=== PATIENT | female | born 1995 | race Caucasian/White ===

== ENCOUNTER 2018-02-07 05:55 | Emergency (ER) | payer OTHER ==
[~2018-02-07] VITALS: Ht 180.3 cm; Wt 108.9 kg
[2018-02-07] MEDS ORDERED: NACL 0.9% 1,000 ML IV ONE ×2 (06:03→06:15)
[2018-02-07 06:05] VITALS: BP_SYST 116
--- NOTE | 2018-02-07 06:12 | NUR ---
Patient to ER bed 4 to gown for evaluation. Side rails up.
--- NOTE | 2018-02-07 06:14 | NUR ---
Patient AAOx4, ambulatory. Patient states having a main complaint of lower abdominal pain with current pain scale of 7/10 at this time. Patient states pain has a sharp sensation and radiates to the left lower abdomen. Patient states having nausea and diarrhea with no vomiting. Patient denies difficulty with urinating at this time. Patient denies any other complaints.
[2018-02-07] MEDS ORDERED: MORPHINE 4 MG/ML INJ. SYRINGE IVP ONE (06:15)
[2018-02-07] MEDS ORDERED: ONDANSETRON HCL 4 MG/2 ML VIAL IVP ONE (06:15)
--- NOTE | 2018-02-07 06:17 | NUR ---
ER Dr. Pfeiffer at bedside examining patient.
[2018-02-07 06:18] LABS: BILIRUBIN,URINE NEGATIVE (NEGATIVE); BLOOD, URINE NEGATIVE (NEGATIVE); CLARITY/URINE CLEAR (CLEAR); COLOR,URINE YELLOW (YELLOW); GLUCOSE,URINE NEGATIVE (NEGATIVE); KETONES,URINE NEGATIVE (NEGATIVE); LEUKOCYTE ESTERASE ,URINE TRACE (NEGATIVE); NITRITE, URINE NEGATIVE (NEGATIVE); PH,URINE 5.5 (5.0-8.0); PROTEIN URINE NEGATIVE (NEGATIVE); UROBILINOGEN,URINE 0.2 (0.2-1.0)
[2018-02-07 06:59] LABS: BASOPHILS # (AUTO) 0.1 K/uL (0.0-0.2); BASOPHILS % (AUTO) 1.5 % (0.0-2.0); EOSINOPHILS # (AUTO) 0.3 K/uL (0.0-0.4); EOSINOPHILS % (AUTO) 3.1 % (0.0-4.0); HEMATOCRIT 40.5 % (36-48); HEMOGLOBIN 13.7 g/dL (12.0-16.0); LYMPHOCYTES # (AUTO) 2.1 K/uL (1.0-5.5); LYMPHOCYTES % (AUTO) 22.6 % (20.5-51.5); MEAN CORPUSCULAR HEMOGLOBIN 30 pg (27-31); MEAN CORPUSCULAR HGB CONC 34 % (32-36); MEAN CORPUSCULAR VOLUME 90 fL (79.0-98.0); MONOCYTES # (AUTO) 0.5 K/uL (0.0-1.0); NEUTROPHILS # (AUTO) 6.1 K/uL (1.8-7.7); NEUTROPHILS % (AUTO) 66.8 % (40.0-70.0); PLATELET COUNT (AUTO) 277 K/uL (130-430); RED BLOOD CELL COUNT(AUTO) 4.52 MIL/uL (4.2-6.2); RED CELL DISTRIBUTION WIDTH 11.6 % (9.0-15.0); WHITE BLOOD COUNT (AUTO) 9.1 K/uL (4.8-10.8)
--- NOTE | 2018-02-07 06:59 | NUR ---
Report given to [facility] MISTRY. Full care of the patient was endorsed to Tyson MISTRY.
[2018-02-07 07:10] LABS: CALCIUM 9.4 mg/dL (8.4-11.0); CREATININE 0.87 mg/dL (0.55-1.30)
[2018-02-07 07:17] LABS: PROTHROMBIN TIME 10.4 SECS (9.5-12.5)
[2018-02-07 07:19] LABS: TOTAL BILIRUBIN 0.5 mg/dL (0.0-1.0)
--- NOTE | 2018-02-07 07:22 | NUR ---
received report from FIDELIA Marino at bedside. PT rersting in bed with no complaint of pain: morphine effective in treating abdominal pain. stool sample collection pending.
--- NOTE | 2018-02-07 07:35 | NUR ---
Pt attempted to provide a stool sample with no success
[2018-02-07 08:10] LABS: BACTERIA,URINE FEW /HPF (None Seen); MUCUS,URINE None Seen /LPF (None Seen); RBC,URINE 0-3 /HPF (0-3); YEAST,URINE None Seen /HPF (None Seen)
[2018-02-07 09:10] LABS: HCG,QUAL RESULT NEGATIVE (NEGATIVE)
--- NOTE | 2018-02-07 09:11 | NUR ---
Pt resting in bed, no complaint of pain.
--- NOTE | 2018-02-07 09:21 | NUR ---
Pt off unit to radiology
--- NOTE | 2018-02-07 09:29 | NUR ---
Pt return to unit from radiology. Tolerated well.
--- NOTE | 2018-02-07 10:15 | NUR ---
pt off unit to radiology
--- NOTE | 2018-02-07 10:30 | NUR ---
pt returned to bed 4 from radiology, no complaint of pain but light nausea
--- NOTE | 2018-02-07 11:20 | NUR ---
Dr. Hernandez at bedside speaking to pt and family discussing lab and diagnostic results.
[2018-02-07 11:45] VITALS: BP_SYST 111
--- NOTE | 2018-02-07 11:45 | NUR ---
Patient given written and verbal discharge instructions and verbalizes understanding. ER MD discussed with patient the results and treatment provided. Patient in stable condition. ID arm band removed. IV catheter removed intact and dressing applied, no active bleeding. Rx of Motrin, Tylenol, Keflex given. Patient educated on pain management and to follow up with PMD. Pain Scale 3/10. Opportunity for questions provided and answered. Medication side effect fact sheet provided.
== END 2018-02-07 11:45 | disposition home or self-care (01) ==
LOC: SED 05:55
DX: R10.9 Unspecified abdominal pain (principal); R19.7 Diarrhea, unspecified; N39.0 Urinary tract infection, site not specified; Z88.1 Allergy status to other antibiotic agents; Z90.89 Acquired absence of other organs
CPT/HCPCS: 36415; 71045; 74176; 76830; 76857; 80053; 81000; 82150; 82550; 83690; 84703; 85025; 85610; 85730; 96361; 96374; 96375; 99285; J2270; J2405; J7030

== ENCOUNTER 2018-04-04 12:52 | Emergency (ER) | payer OTHER ==
[~2018-04-04] VITALS: Ht 180.3 cm; Wt 62.6 kg
[2018-04-04 13:04] VITALS: BP_SYST 116
[2018-04-04 13:31] VITALS: BP_SYST 123
== END 2018-04-04 13:31 | disposition home or self-care (01) ==
LOC: SED 12:52
DX: M77.8 Other enthesopathies, not elsewhere classified (principal); Z88.1 Allergy status to other antibiotic agents
CPT/HCPCS: 99282

== ENCOUNTER 2019-02-25 08:21 | Emergency (ER) | payer MEDICAID, OTHER ==
[~2019-02-25] VITALS: Ht 180.3 cm; Wt 114.8 kg
[2019-02-25 08:30] VITALS: BP_SYST 120
--- NOTE | 2019-02-25 08:34 | NUR ---
ER Dr. MANZANO at bedside examining patient.
--- NOTE | 2019-02-25 08:35 | NUR ---
PATIENT CAME IN COMPLAINING OF LOWER BACK PAIN 01/09 THAT STARTED YESTERDAY WHEN SHE WAS SWEEPING OUTSIDE. PATIENT COMPLAINING OF LEFT LEG NUMBNESS AND WEAKNESS. PATIENT STATES SHE TOOK IBUPROFEN FOR PAIN BUT DIDNT WORK. PATIENT DENIES SOB, NAUSEA, AND VOMITING. PATIENT HAVING DIFFICULTIES LAYING DOWN AND AMBULATING. PATIENT ALERT AND ORIENTED X4.
[2019-02-25] MEDS ORDERED: KETOROLAC TROMETHAMINE 30 MG VIAL IM ONE (08:45)
--- NOTE | 2019-02-25 08:50 | NUR ---
MEDICATION ADMINISTERED. PATIENT TOLERATED WELL. WILL CONTINUE TO MONITOR AND REASSESS PAIN.
--- NOTE | 2019-02-25 09:05 | NUR ---
PATIENT LEFT TO X [facility] IN STABLE CONDITION.
--- NOTE | 2019-02-25 09:18 | NUR ---
PATIENT BACK FROM [facility]. PATIENT STATES THAT PAIN MEDICATION HELPED HER.
--- NOTE | 2019-02-25 09:52 | NUR ---
Patient given written and verbal discharge instructions and verbalizes understanding. ER MD discussed with patient the results and treatment provided. Patient in stable condition. ID arm band removed. Rx of TRAMADOL AND ROBAXIN given. Patient educated on pain management and to follow up with PMD. Pain Scale 3/10 TOLERABLE. Opportunity for questions provided and answered. Medication side effect fact sheet provided.
[2019-02-25 09:54] VITALS: BP_SYST 120
== END 2019-02-25 09:54 | disposition home or self-care (01) ==
LOC: SED 08:21
DX: S39.012A Strain of muscle, fascia and tendon of lower back, initial encounter (principal); Z88.1 Allergy status to other antibiotic agents; X50.9XXA Other and unspecified overexertion or strenuous movements or postures, initial encounter; Y93.89 Activity, other specified; Y92.69 Other specified industrial and construction area as the place of occurrence of the external cause; Y99.8 Other external cause status
CPT/HCPCS: 72100; 81025; 96372; 99283; J1885